=== PATIENT | female | born 1990 | race Asian ===

== ENCOUNTER 2018-12-05 13:51 | Emergency (ER) | payer OTHER ==
[2018-12-05 15:12] LABS: ABS Eosinophils 0.2 10^3/ul (0-0.6); ABS Lymphocytes 1.9 10^3/ul (1.0-4.8); ABS Monocytes 0.5 10^3/ul (0-0.8); ABS Neutrophils 4.7 10^3/ul (1.5-7.7); Eosinophil % 2.4 %; Hematocrit 41 % (35-47); Lymphocyte % 25.9 %; Mean Corpuscular HGB Conc 34 g/dL (31-36); Mean Corpuscular Hemoglobin 31 pg (27-31); Mean Corpuscular Volume 91 fL (80-97); Mean Platelet Volume 8.1 fL (7.4-10.4); Nucleated Red Blood Cells % 0.1; Platelet Count 195 10^3/uL (150-450); Red Blood Count 4.48 10^6 /uL (3.70-4.87); Red Cell Distribution Width 13 % (10-15); White Blood Count 7.4 10^3/uL (3.5-10.8)
[2018-12-05 15:37] LABS: HCG Pregnancy < 0.60 mIU/mL
[2018-12-05 15:42] LABS: ALT 24 U/L (7-52); AST 20 U/L (13-39); Albumin 4.4 g/dL (3.2-5.2); Albumin/Globulin Ratio 1.6 (1-3); Alkaline Phosphatase 52 U/L (34-104); Anion Gap 6 mmol/L (2-11); BUN/Creatinine Ratio 19.8 (8-20); Blood Urea Nitrogen 17 mg/dL (6-24); C Reactive Protein < 1.00 mg/L (<8.01); CO2 Carbon Dioxide 27 mmol/L (22-32); Calcium 9.5 mg/dL (8.6-10.3); Chloride 103 mmol/L (101-111); EGFR African American 96.5 (>60); EGFR Non-African American 79.8 (>60); Globulin 2.8 g/dL (2-4); Glucose 103 mg/dL (70-100); Potassium 4.3 mmol/L (3.5-5.0); Sodium 136 mmol/L (135-145); Total Protein 7.2 g/dL (6.4-8.9)
--- NOTE | 2018-12-05 17:22 | ED ---
Skin Complaint - HPI Summary HPI Summary: This pt is a 28 y/o female presenting to [facility] c/o rash on right thigh and right arm s/p insect bite on 11/20/18. Pt states she does not know what bit her on 11/20/18 but notes it looked like a mosquito bite. She reports a few days later this bite began to spread on her right thigh and right arm, and after her run yesterday it became worse. She describes the rash as red and very pruritic, but not painful. Pt notes her right arm rash is getting better and is getting crusty. Denies fever, chills, nausea, vomiting, SOB. no drainage. Denies sick contacts. Pt denies anyone she knows from 11/20/18 has had similar symptoms. Pt has been seeking medical attention from [facility]. Pt was placed on Keflex on 11/28/18 and 4 days later they added Bactrim. She was also given Bactroban cream which she has been placing on both thigh and arm. Denies any recent traveling. Denies hx of infections. Denies hx of skin problems. Pt's medications reviewed this visit. - History of Current Complaint Chief Complaint: EDRashSkinAbscess Time Seen by Provider: 12/05/18 17:08 Stated Complaint: INFECTION FROM INSECT BITE/RT ARM/RT THIGH PER PT Hx Obtained From: Patient Onset/Duration: Started Days Ago, Still Present Skin Exposure Onset/Duration: Days Ago Timing: Lasting Days Current Severity: None Pain Intensity: 0 Pain Scale Used: 0-10 Numeric Skin Location: Arm - right, Other: - Right thigh Character: Pruritus, Redness Aggravating Symptom(s): Nothing Alleviating Symptom(s): Nothing Associated Signs & Symptoms: Negative - Allergy/Home Medications Allergies/Adverse Reactions: Allergies Allergy/AdvReac Type Severity Reaction Status Date / Time No Known Allergies Allergy Verified 12/05/18 13:57 PMH/Surg Hx/FS Hx/Imm Hx Previously Healthy: Yes Endocrine/Hematology History: Denies: Hx Diabetes Cardiovascular History: Denies: Hx Hypertension Infectious Disease History: No Infectious Disease History: Denies: Traveled Outside the [place] in Last 30 Days - Family History Known Family History: Positive: Non-Contributory Negative: Cardiac Disease, Hypertension, Diabetes - Social History Occupation: Student Lives: Dormitory/Roommates Alcohol Use: None Substance Use Type: Reports: None Smoking Status (MU): Never Smoked Tobacco Review of Systems Negative: Fever Negative: Shortness Of Breath Negative: Vomiting, Nausea Positive: Rash - on right thigh and right arm All Other Systems Reviewed And Are Negative: Yes Physical Exam - Summary Physical Exam Summary: Vital Signs Reviewed: Yes A+Ox3, no distress, well appearing Eyes: Conjunctiva Clear ENT: Hearing grossly normal mmoist, Neck: Positive: Supple Respiratory: Positive: No respiratory distress, No accessory muscle use + CTA throughout no w/r Cardiovascular: RRR nl s1, s2 no m/r CBT <2 sec 2+ PT, radial Musculoskeletal Exam: Full AROM RUE, RLE Neurological: Positive: Alert, + sensation throughout Psychological: Positive: Normal Response To Family Skin: Positive: right elbow: pt with mild erythematous area right with dry, flaking skin at olecrenon. no warmth. not raised, no induration, no drainate, no pain pt states improving s/p bactroban full ARM RLE: pt with area of erythema prox tomid thight not circumferential no induration, raised, fluctuance nn tender pruritic, no open wound not warmth small area distal edge appears initial bite site Vital Signs On Initial Exam: Initial Vitals Temp Pulse Resp BP Pulse Ox 98.3 F 69 17 117/62 99 12/05/18 13:54 12/05/18 13:54 12/05/18 13:54 12/05/18 13:54 12/05/18 13:54 Diagnostics - Vital Signs Vital Signs Temp Pulse Resp BP Pulse Ox 12/05/18 15:37 98.4 F 60 15 103/60 12/05/18 13:54 98.3 F 69 17 117/62 99 - Laboratory Lab Results: Lab Results 12/05/18 12/05/18 12/05/18 Range/Units 15:05 15:05 15:05 WBC 7.4 (3.5-10.8) 10^3/uL RBC 4.48 (3.70-4.87) 10^6 /uL Hgb 14.0 (12.0-16.0) g/dL Hct 41 (35-47) % MCV 91 (80-97) fL MCH 31 (27-31) pg MCHC 34 (31-36) g/dL RDW 13 (10-15) % Plt Count 195 (150-450) 10^3/uL MPV 8.1 (7.4-10.4) fL Neut % (Auto) 64.0 % Lymph % (Auto) 25.9 % Garrett % (Auto) 7.4 % Eos % (Auto) 2.4 % Baso % (Auto) 0.3 % Absolute Neuts (auto) 4.7 (1.5-7.7) 10^3/ul Absolute Lymphs (auto) 1.9 (1.0-4.8) 10^3/ul Absolute Monos (auto) 0.5 (0-0.8) 10^3/ul Absolute Eos (auto) 0.2 (0-0.6) 10^3/ul Absolute Basos (auto) 0.0 (0-0.2) 10^3/ul Absolute Nucleated RBC 0.0 10^3/ul Nucleated RBC % 0.1 Sodium 136 (135-145) mmol/L Potassium 4.3 (3.5-5.0) mmol/L Chloride 103 (101-111) mmol/L Carbon Dioxide 27 (22-32) mmol/L Anion Gap 6 (2-11) mmol/L BUN 17 (6-24) mg/dL Creatinine 0.86 (0.51-0.95) mg/dL Est GFR ( Amer) 96.5 (>60) Est GFR (Non-Af Amer) 79.8 (>60) BUN/Creatinine Ratio 19.8 (8-20) Glucose 103 H (70-100) mg/dL Lactic Acid 1.4 (0.5-2.0) mmol/L Calcium 9.5 (8.6-10.3) mg/dL Total Bilirubin 0.50 (0.2-1.0) mg/dL AST 20 (13-39) U/L ALT 24 (7-52) U/L Alkaline Phosphatase 52 (34-104) U/L C-Reactive Protein < 1.00 (<8.01) mg/L Total Protein 7.2 (6.4-8.9) g/dL Albumin 4.4 (3.2-5.2) g/dL Globulin 2.8 (2-4) g/dL Albumin/Globulin Ratio 1.6 (1-3) Beta HCG, Quant < 0.60 mIU/mL Result Diagrams: 12/05/18 15:05 12/05/18 15:05 Lab Statement: Any lab studies that have been ordered have been reviewed, and results considered in the medical decision making process. Course/Dx - Course Course Of Treatment: pt with right elbow and right prox thigh are of pruritic erythema s/p bug bite. Pt on keflex and bactrim states elbow improved leg erythema worse s/p runnig in pants yesterday itching worse since, worse with shower no benadryl or pred taken. VSS. labs reviewed nno cocerning. no fever. suspicion rection are location reaction and not cellulitis. pt no toxic appearing, no pain. will Rx pred. continue abx. recheck [facility] next week - derm referral. strict return precuatio. avoid heat. pt comfortable and in agreement with plan - Diagnoses Provider Diagnoses: Local reaction to insect sting, Cellulitis Discharge - Sign-Out/Discharge Documenting (check all that apply): Patient Departure - Discharge home Patient Received Moderate/Deep Sedation with Procedure: No - Discharge Plan Condition: Stable Disposition: HOME Prescriptions: predniSONE TAB* [Deltasone 20 MG TAB*] 20 mg PO DAILY #11 tab Patient Education Materials: Cellulitis (ED), Insect Bite or Sting (ED) Referrals: [facility] [Outside] No Primary Care Phys,NOPCP [Primary Care Provider] - Additional Instructions: - Continue to take Bactrim and Cephalexin as prescribed - it is recommended you eat yogurt or take probiotics on days you take this medication - Take prednisone daily as prescribed - okay to cover wound on your elbow with ointment and bandage as prescirbed - Avoid getting over heated - hot shower, hot tubs, exercises, overheating outside - Follow-up with [facility] on Saturday as prescribed - you have also been given referral information for dermatology - okay to contact their office on saturday for an appointment If you develop fevers, chills, vomiting, pain, increased reddnes, red streaking or any other concerns it is recmmended you return immediately to the emergency department - Billing Disposition and Condition Condition: STABLE Disposition: Home - Attestation Statements Document Initiated by Scribe: Yes Documenting Scribe: Vicky Alvarez Provider For Whom Scribe is Documenting (Include Credential): Helen Garcia MD Scribe Attestation: I, Vicky Alvarez, scribed for Helen Garcia MD on 12/06/18 at 0504. Scribe Documentation Reviewed: Yes Provider Attestation: The documentation as recorded by the scribe, Vicky Alvarez accurately reflects the service I personally performed and the decisions made by me, Helen Garcia MD Status of Scribe Document: Viewed
[2018-12-05] MEDS ORDERED: predniSONE TAB* 20 MG PO ONE (17:30)
[2018-12-05 18:00] VITALS: BP 128/69
[2018-12-05] MEDS ORDERED: Mupirocin 2% OINT* TUBE TOPICAL SCH (18:00)
== END 2018-12-05 17:58 | disposition home or self-care (01) ==
LOC: ED 13:51
DX: S50.361A Insect bite (nonvenomous) of right elbow, initial encounter (principal); S70.361A Insect bite (nonvenomous), right thigh, initial encounter; L03.113 Cellulitis of right upper limb; L03.115 Cellulitis of right lower limb; W57.XXXA Bitten or stung by nonvenomous insect and other nonvenomous arthropods, initial encounter; Y92.9 Unspecified place or not applicable
CPT/HCPCS: 36415; 80053; 83605; 84702; 85025; 86140; 99282; J7512